=== PATIENT | male | born 1980 | race Caucasian/White ===

== ENCOUNTER 2016-08-31 08:02 | Emergency (ER) | payer OTHER ==
[2016-08-31 08:07] VITALS: RESP 18
--- NOTE | 2016-08-31 08:58 | EDPHY ---
H & P Stated Complaint: Woke up feeling anxious and overheated. - Personal History Current Tetanus Diphtheria and Acellular Pertussis (TDAP): Yes Tetanus Vaccine Date: 2014 - Medical/Surgical History Hx Asthma: Yes Hx Chronic Respiratory Disease: No Hx Diabetes: No Hx Cardiac Disease: No Hx Renal Disease: No Hx Cirrhosis: No Hx Alcoholism: No Hx HIV/AIDS: No Hx Splenectomy or Spleen Trauma: No Other PMH: KNEES, anxiety. tonsils - Social History Smoking Status: Current every day smoker HPI/ROS: Chief complaint: Feeling anxious and sweaty History of present illness: This is a 36-year-old male who presents to the emergency department stating he is feeling very anxious and sweaty. Patient states he was out partying last night. He reports he drank excessively. In addition he used cocaine, Xanax, LSD and ecstasy. He went home afterwards and fell asleep. He states he woke this morning feeling anxious and sweaty. He has describes a generalized feeling of malaise. He denies any alleviating factors. He denies other associated signs or symptoms including no actual fever , no actual pain including no chest pain, no trouble breathing, no report of trauma. Review of systems: A 10 point review of systems was obtained and other than described above was negative (Ba Dewey) - Physical Exam Exam: General Appearance: Alert, nontoxic. Eyes: Pupils equal and round no pallor or injection. ENT, Mouth: Mucous membranes moist. Respiratory: There are no retractions, lungs are clear to auscultation. Cardiovascular: Regular rate and rhythm. Gastrointestinal: Abdomen is soft and nontender, no masses, bowel sounds normal. Neurological: Alert and oriented. Strength and sensation intact and symmetrical. Skin: Warm and dry, no rashes. Musculoskeletal: Neck is supple nontender. Extremities are symmetrical, full range of motion. Psychiatric: Patient is oriented X 3, there is no agitation. (Ba Dewey) Constitutional: Initial Vital Signs Temperature (C) 37 C 08/31/16 08:03 Heart Rate 96 08/31/16 08:03 Respiratory Rate 18 08/31/16 08:03 Blood Pressure 140/75 H 08/31/16 08:03 O2 Sat (%) 96 08/31/16 08:03 O2 Delivery Mode Room Air Allergies/Adverse Reactions: cefaclor [From Ceclor] Allergy (Unknown, Verified 08/24/15 20:36) Penicillins Allergy (Verified 08/24/15 20:36) Home Medications: Medication Instructions Recorded LORazepam [Ativan (*)] 1 mg PO Q8 PRN #8 tab 09/28/15 Medical Decision Making ED Course/Re-evaluation: Patient discussed with my secondary supervising physician Dr. Merlene Landon. Patient presents to the emergency department describing generalized malaise after extensive substance abuse last night. Patient is afebrile and vital signs are stable. He is IV hydrated with 2 L of normal saline. Blood studies and EKG are largely unremarkable. His vital signs are stable. He is discharged home. Symptomatic care is discussed. He is asked to follow up with primary care doctor for recheck. Return precautions are given. (Ba Dewey) Differential Diagnosis: Included but not limited to polysubstance abuse, cardiac disturbances, acute rhabdomyolysis, electrolyte disturbances, anemia (Ba Dewey) Other Provider: The patient was evaluated and managed by the Physician Dry Kiln Operator/ Nurse Practitioner. I discussed the patient's presentation and course with the midlevel provider with them and agree with the evaluation. My co-signature indicates that I have reviewed this chart and I agree with the findings and plan of care as documented. I am the secondary supervising physician. (Merlene Landon) - Data Points Laboratory Results: Laboratory Results 08/31/16 09:10 08/31/16 09:10 08/31/16 08/31/16 09:10 09:00 WBC 13.30 H 10^3/uL (3.80-9.50) RBC 4.75 10^6/uL (4.40-6.38) Hgb 15.3 g/dL (13.7-17.5) Hct 41.9 % (40.0-51.0) MCV 88.2 fL (81.5-99.8) MCH 32.2 pg (27.9-34.1) MCHC 36.5 g/dL (32.4-36.7) RDW 14.3 % (11.5-15.2) Plt Count 332 10^3/uL (150-400) MPV 9.2 fL (8.7-11.7) Neut % (Auto) 78.2 H % (39.3-74.2) Lymph % (Auto) 15.3 % (15.0-45.0) [place] % (Auto) 4.9 % (4.5-13.0) Eos % (Auto) 0.7 % (0.6-7.6) Baso % (Auto) 0.5 % (0.3-1.7) Nucleat RBC Rel Count 0.0 % (0.0-0.2) Absolute Neuts (auto) 10.42 H 10^3/uL (1.70-6.50) Absolute Lymphs (auto) 2.03 10^3/uL (1.00-3.00) Absolute Monos (auto) 0.65 10^3/uL (0.30-0.80) Absolute Eos (auto) 0.09 10^3/uL (0.03-0.40) Absolute Basos (auto) 0.06 10^3/uL (0.02-0.10) Absolute Nucleated RBC 0.00 10^3/uL (0-0.01) Immature Gran % 0.4 % (0.0-1.1) Immature Gran # 0.05 10^3/uL (0.00-0.10) Sodium 137 mEq/L (134-144) Potassium 3.8 mEq/L (3.5-5.2) Chloride 97 mEq/L (97-110) Carbon Dioxide 22 mEq/l (22-31) Anion Gap 18 mEq/L (8-16) BUN 7 mg/dL (7-23) Creatinine 0.9 mg/dL (0.7-1.3) Estimated GFR > 60 Glucose 90 mg/dL (70-100) Calcium 8.6 mg/dL (8.5-10.4) Creatine Kinase 191 IU/L (0-224) Troponin I < 0.012 ng/mL (0-0.034) Urine Color PALE YELLOW Urine Appearance CLEAR Urine pH 5.0 (5.0-7.5) Ur Specific [place] 1.004 (1.002-1.030) Urine Protein NEGATIVE (NEGATIVE) Urine Ketones NEGATIVE (NEGATIVE) Urine Blood NEGATIVE (NEGATIVE) Urine Nitrate NEGATIVE (NEGATIVE) Urine Bilirubin NEGATIVE (NEGATIVE) Urine Urobilinogen NEGATIVE EU (0.2-1.0) Ur Leukocyte Esterase NEGATIVE (NEGATIVE) Ur Culture Indicated? NOT INDICATED (NI) Urine Glucose NEGATIVE (NEGATIVE) Departure - Departure Disposition: Home, Routine, Self-Care Clinical Impression: Polysubstance abuse Condition: Good Instructions: Polysubstance Abuse (ED) Additional Instructions: Follow-up with a primary care doctor in the next 2-3 days for recheck Please drink plenty of fluids, eat proper meals and get plenty of rest Avoid the use of alcohol and drugs If symptoms worsen or new symptoms develop return to the emergency department for recheck Referrals: NONE *PRIMARY CARE P,. [Primary Care Provider] - As per Instructions [facility] [Outside] - As per Instructions Flaca Navas DO [Doctor of Osteopathy] - As per Instructions
[2016-08-31 09:19] LABS: % IMMATURE GRANULYOCYTES 0.4 % (0.0-1.1); ABSOLUTE IMMATURE GRANULOCYTES 0.05 10^3/uL (0.00-0.10); ADD DIFF? NO; ADD MORPH? NO; ADD SCAN? NO; ATYPICAL LYMPHOCYTE FLAG 40 (0-99); FRAGMENT RBC FLAG 0 (0-99); HEMATOCRIT 41.9 % (40.0-51.0); HEMOGLOBIN 15.3 g/dL (13.7-17.5); LEFT SHIFT FLG 0 (0-99); LIPEMIA HEMOLYSIS FLAG 90 (0-99); MEAN CELL HEMOGLOBIN 32.2 pg (27.9-34.1); MEAN CELL HEMOGLOBIN CONCENTR. 36.5 g/dL (32.4-36.7); MEAN CELL VOLUME 88.2 fL (81.5-99.8); MEAN PLATELET VOLUME 9.2 fL (8.7-11.7); PLATELET CLUMPS FLAG 0 (0-99); PLATELET COUNT 332 10^3/uL (150-400); RED BLOOD CELL COUNT 4.75 10^6/uL (4.40-6.38); RED CELL DISTRIBUTION WIDTH 14.3 % (11.5-15.2)
[2016-08-31 09:23] LABS: COLOR PALE YELLOW; LEUKOCYTE ESTERASE,URINE NEGATIVE (NEGATIVE); NITRITE,URINE NEGATIVE (NEGATIVE)
--- NOTE | 2016-08-31 09:25 | CPEKG ---
Heart Rate: 77 RR Interval: 779 P-R Interval: 172 QRSD Interval: 112 QT Interval: 412 QTC Interval: 467 P [place]: 69 QRS [place]: 15 T Wave [place]: 13 EKG Severity - ABNORMAL ECG - EKG Impression: SINUS RHYTHM EKG Impression: INCOMPLETE RIGHT BUNDLE BRANCH BLOCK EKG Impression: ABNRM R PROG, CONSIDER ASMI OR LEAD PLACEMENT Electronically Signed By: Merlene Landon 31-Aug-2016 15:48:37
[2016-08-31 09:35] LABS: ANION GAP 18 mEq/L (8-16); CALCIUM 8.6 mg/dL (8.5-10.4); CARBON DIOXIDE 22 mEq/l (22-31); CHLORIDE 97 mEq/L (97-110); CREATININE 0.9 mg/dL (0.7-1.3); GLOMERULAR FILTRATION RATE > 60; GLUCOSE 90 mg/dL (70-100); POTASSIUM 3.8 mEq/L (3.5-5.2); SODIUM 137 mEq/L (134-144)
[2016-08-31 09:46] LABS: TROPONIN I < 0.012 ng/mL (0-0.034)
[2016-08-31 10:19] VITALS: BP 116/65; PULSE 78; TEMP 97.3; O2SAT 91
== END 2016-08-31 10:47 | disposition home or self-care (01) ==
DX: F19.10 Other psychoactive substance abuse, uncomplicated (principal); J45.909 Unspecified asthma, uncomplicated; F17.200 Nicotine dependence, unspecified, uncomplicated

== ENCOUNTER 2016-09-12 09:17 | Emergency (ER) | payer OTHER ==
[2016-09-12] MEDS ORDERED: NS 1,000 ML IV ONE ×2 (09:44)
[2016-09-12] MEDS ORDERED: ONDANSETRON 4 MG/2 ML VIAL IVP ONE (09:44)
--- NOTE | 2016-09-12 09:46 | EDPHY ---
H & P Time Seen by Provider: 09/12/16 09:40 HPI/ROS: CHIEF COMPLAINT: N/V/D HISTORY OF PRESENT ILLNESS: The patient is a 36 year old male presenting with nausea, vomiting, and diarrhea that started this morning. The patient reports multiple episodes of vomiting this morning. He continues to feel severely nauseous. No abdominal pain or fever. The patient has been seen here multiple times for polysubstance abuse. He has recently been trying to cut back on Xanax which he takes for anxiety. No recent travel. REVIEW OF SYSTEMS: Aside from elements discussed in the HPI, a comprehensive 10-point review of systems was reviewed and is negative. Past Medical/Surgical History: Anxiety. Social History: Cigarette smoker, Alcohol use. Smoking Status: Current every day smoker Physical Exam: General Appearance: Alert, no distress Eyes: Pupils equal and round, no conjunctival pallor or injection ENT, Mouth: Mucous membranes moist Neck: Normal inspection Respiratory: Lungs are clear to auscultation Cardiovascular: Regular rate and rhythm Gastrointestinal: Abdomen is soft and non-tender Neurological: A&O, nonfocal, normal gait Skin: Warm and dry, no rash Extremities: Nontender, no pedal edema Psychiatric: Mood and affect normal Constitutional: Initial Vital Signs Temperature (C) 36.7 C 09/12/16 09:21 Heart Rate 87 09/12/16 09:21 Respiratory Rate 16 09/12/16 09:21 Blood Pressure 146/97 H 09/12/16 09:21 O2 Sat (%) 96 09/12/16 09:21 O2 Delivery Mode Room Air Allergies/Adverse Reactions: cefaclor [From [facility]] Allergy (Unknown, Verified 09/12/16 09:20) Penicillins Allergy (Verified 09/12/16 09:20) Home Medications: Medication Instructions Recorded Ondansetron Odt [Zofran Odt 4 mg 4 mg PO Q4 PRN #6 tab 09/12/16 (*)] Xanax 09/12/16 Medical Decision Making ED Course/Re-evaluation: IV was established, patient received 2L normal saline and 4mg Zofran IV. Feels better after IV Zofran and wants to go home. Abdomen remained soft and nontender. Differential Diagnosis: Differential diagnosis includes though it is not limited to appendicitis, cholecystitis, diverticulitis, pyelonephritis, bowel perforation, small bowel obstruction. - Data Points Medications Given: Discontinued Medications Sodium Chloride (Ns) 1,000 mls @ 0 mls/hr IV ONCE ONE PRN Reason: Wide Open Stop: 09/12/16 09:45 Last Admin: 09/12/16 09:53 Dose: 1,000 mls Sodium Chloride (Ns) 1,000 mls @ 0 mls/hr IV ONCE ONE PRN Reason: Wide Open Stop: 09/12/16 09:45 Last Admin: 09/12/16 09:55 Dose: 1,000 mls Ondansetron HCl (Zofran) 4 mg IVP EDNOW ONE Stop: 09/12/16 09:45 Last Admin: 09/12/16 09:55 Dose: 4 mg Departure - Departure Disposition: Home, Routine, Self-Care Clinical Impression: Vomiting Condition: Good Instructions: Acute Nausea and Vomiting (ED) Additional Instructions: Take Zofran as directed for nausea and vomiting. Referrals: Phoebe Woo MD [Medical Doctor] - As per Instructions Stand Alone Forms: Work Excuse Prescriptions: Ondansetron Odt [Zofran Odt 4 mg (*)] 4 mg PO Q4 PRN #6 tab PRN Reason: Nausea Report Scribed for: Radha Quarles Report Scribed by: Darlyn Peraza Date of Report: 09/12/16 Time of Report: 09:49 Physician Review and Approval Statement: 09/12/16 09:49 Portions of this note were transcribed by a biomedical service engineer. I personally performed the history, physical exam, and medical decision-making; and confirmed the accuracy of the information in the transcribed note.
[2016-09-12 11:33] VITALS: RESP 14; O2SAT 95
[2016-09-12 11:34] VITALS: BP 157/87; PULSE 98; TEMP 97.3
== END 2016-09-12 11:34 | disposition home or self-care (01) ==
DX: R11.10 Vomiting, unspecified (principal); F17.210 Nicotine dependence, cigarettes, uncomplicated
CPT/HCPCS: 96374; J2405

== ENCOUNTER 2016-11-04 20:14 | Emergency (ER) | payer OTHER ==
[2016-11-04 20:21] VITALS: O2SAT 96
--- NOTE | 2016-11-04 21:14 | EDPHY ---
General Narrative: CHIEF COMPLAINT: Snowboard injury, right-sided rib pain HISTORY OF PRESENT ILLNESS: patient was snowboarding on Thursday when he fell at a moderate rate of speed. He says that was a brief loss of consciousness and injury to the right ribs. Pain was mild day. In fact he actually continued to snowboard that day and on Thursday at another location. The past 2 days however, he notes increasing pain in the right anterior ribs. Moderate to severe pain worse with inspiration and palpation. Improves at rest but does not resolve. No chest pain at rest. No difficulty breathing but painful inspiration only. No fevers or chills. Minimal cough. No hemoptysis. No other associated complaints or modifying factors. PRIOR ORTHO INJURIES: None ESTABLISHED ORTHOPEDIST: none REVIEW OF SYSTEMS: Ten systems reviewed and are negative unless otherwise noted in the HPI EXAMINATION General Appearance: Alert, no distress Head: normocephalic, atraumatic Eyes: Pupils equal and round, no conjunctival pallor or injection ENT, Mouth: Mucous membranes moist. Uvula midline. No erythema or edema Neck: Normal inspection Respiratory: splinting is inspirations. There are clear sounds in all soto. Tenderness to palpation right anterior ribs. Cardiovascular: Pulses normal throughout. Brisk cap refill Gastrointestinal: No distention Back: non-tender, no bony abnormalities Neurological: A&O, sensory symmetric, strength symmetric Skin: Warm and dry, no rash. No ecchymosis, laceration, abrasions or skin changes over the area of pain. Extremities: Nontender, no pedal edema Psychiatric: Mood and affect normal DIFFERENTIAL DIAGNOSES: Including but not limited to Rib fracture, rib contusion, costochondritis, musculoskeletal injury, pulmonary contusion, pneumo thorax, hemothorax MDM: 8:45 p.m. snowboarding injury with right rib pain. Patient's examination is consistent with rib fracture versus contusion. There is no outward sign of trauma. He is not hypoxic. There are breath sounds in all soto. Chest x-ray has been ordered to examine for rib fracture and/or pulmonary injury. He is in no acute distress. 10:20 p.m. x-ray does not reveal any acute trauma. Mild evidence of bronchitis noted. He is feeling well here in the emergency department. I will discharge him home with anti-inflammatories, muscle relaxant and short course of steroids for the pain and swelling. He is to follow up with primary care physician for definitive care. Return to ER for worsening symptoms. Patient is comfortable this plan and discharged home in stable condition with normal vital signs. ED Precautions: Worsening pain. Erythema, edema, cyanosis, pallor, paresthesia or anesthesia. SUPERVISION: This patient was independently evaluated without the aide of supervising physician. - History Smoking Status: Current every day smoker - Objective Vital Signs: Initial Vital Signs Temperature (C) 96.8 F 11/04/16 20:16 Heart Rate 73 11/04/16 20:16 Respiratory Rate 18 11/04/16 20:16 Blood Pressure 150/84 H 11/04/16 20:16 O2 Sat (%) 96 11/04/16 20:16 O2 Delivery Mode Room Air Allergies/Adverse Reactions: cefaclor [From Ceclor] Allergy (Unknown, Verified 11/04/16 20:22) Penicillins Allergy (Verified 11/04/16 20:22) Home Medications: Medication Instructions Recorded Xanax 09/12/16 Cyclobenzaprine [Flexeril 10 MG 10 mg PO TID PRN #15 tab 11/04/16 (*)] Departure - Departure Disposition: Home, Routine, Self-Care Clinical Impression: Contusion of rib on right side Qualifiers: Encounter type: initial encounter Qualified Code(s): S20.211A - Contusion of right front wall of thorax, initial encounter Snowboard accident Qualifiers: Encounter type: initial encounter Qualified Code(s): V00.318A - Other snowboard accident, initial encounter Condition: Good Instructions: Hydrocodone/Acetaminophen (By mouth), Cyclobenzaprine (By mouth) , Rib Contusion (ED) Additional Instructions: follow-up with primary care physician as needed. Return to the ER for worsening symptoms, difficulty breathing, fever or chills Referrals: [facility] [Other] - As per Instructions Prescriptions: Cyclobenzaprine [Flexeril 10 MG (*)] 10 mg PO TID PRN #15 tab PRN Reason: Spasms
[2016-11-04] MEDS ORDERED: HYDROCOD/APAP 5/325 PREPACK#6 BTL TAKEHOME ONE (22:28)
[2016-11-04] MEDS ORDERED: CYCLOBENZAPRINE 10MG PREPACK#3 BTL TAKEHOME ONE (22:28)
[2016-11-04] MEDS ORDERED: DEXAMETHASONE 4 MG TAB PO ONE (22:28)
[2016-11-04 22:53] VITALS: BP 148/88; PULSE 62; RESP 20; TEMP 98.1
== END 2016-11-04 22:54 | disposition home or self-care (01) ==
DX: S20.211A Contusion of right front wall of thorax, initial encounter (principal); F17.200 Nicotine dependence, unspecified, uncomplicated; V00.138A Other skateboard accident, initial encounter; Y99.8 Other external cause status; Y93.51 Activity, roller skating (inline) and skateboarding